=== PATIENT | male | born 1960 | race Caucasian/White ===

== ENCOUNTER 2024-07-30 08:09 | Outpatient (CLI) | payer BC ==
[2024-07-30] MEDS ORDERED: Iopamidol 370 76% 100 ML VIAL ONE (13:02)
== END 2024-07-30 08:10 | disposition home or self-care (01) ==
LOC: CT 08:09
PROVIDERS: ATTEND Internal Medicine Cardiovascular Disease
DX: I25.10 Atherosclerotic heart disease of native coronary artery without angina pectoris (principal); I77.810 Thoracic aortic ectasia
CPT/HCPCS: 36415; 71275; 82565; Q9967